=== PATIENT | male | born 1955 | race Caucasian/White ===

== ENCOUNTER 2017-05-14 09:50 | Day surgery (SDC) | payer OTHER ==
[~2017-05-14] VITALS: Ht 170.2 cm; Wt 68.0 kg
[~2017-05-14 09:50] MED LIST: ALBU90OI INH; ALLO100 PO; ASPI325EC; ATOR40TA PO; Aspir 8181 MG PO; BENADRYL25 MG PO; BENTYL20 MG PO; BUSP10; BUTASPCAFT PO; CARV6.25 PO; CEPH500 PO; CLOP75; CLOP75 PO; Cyclobenzaprine5 MG PO; Doxycycline Hy100 MG PO; Duoneb 2.5-0.5 M3 ML INH; HYDACE5; HYDACE5 PO; HYDACE5325; HYDACE7.5 PO; HYDR1TAB94 PO; IBUP800 PO; ISODIN10 PO; ISOMON30; LISHYD1012 PO; LISI20 PO; LISI5 PO; LOVA40 PO; MELO7.5 PO; METO25ER PO; METO50; METO50ER; METO50ER PO; NIAC500ER; NITR.4SL; NITR.4SL SL; NITR.4TPA; Nitrostat0.4 MG PO; Norco 5-325 Ta1 EACH PO; OMEP20ER; OMEP20ER PO; OXYACE5T PO; Omeprazole20 M1 PO; PRED1; PRED10 PO; PRED5; PROM25 PO; PSEU120ER PO; Percocet 5-3251 EACH PO; Prednisone20 MG PO; RANI150 PO; ROSU10TA; ROSU10TA PO; SCOPOLAMINE1 EACH TD; TIOT18 INH; TOPI50 PO; TRAM50 PO; Ultram50 MG PO; Vibramycin100 MG PO; ZESTORETIC 20-121 EA; Zofran Odt4 MG SL
--- NOTE | 2017-05-14 10:57 | NUR ---
Ambulatory in Day Surgery History, Chart, Medications and Allergies reviewed before start of procedure.Patient confirms NPO status and agrees with scheduled surgery. Lungs clear T/O to Auscultation.Patient states colon prep results clear.
--- NOTE | 2017-05-14 11:36 | NUR ---
05/14/17 1136 Linda Rodríguez History, Chart, Medications and Allergies reviewed before start of procedure.PATIENT DETERMINED TO BE ASA APPROPRIATE FOR PROPOFOL SEDATION PRIOR TO START OF PROCEDURE BY .MONITOR INTACT WITH CONTINUOUS PULSE OXIMETRY AND INTERMITTENT BP.3-LEAD EKG REVIEWED WITH PHYSICIAN PRIOR TO START OF PROCEDURE.O2 VIA N/C INTACT THROUGHOUT SEDATION/PROCEDURE.
--- NOTE | 2017-05-14 12:08 | NUR ---
ALERT. SITTING UP IN BED DRINKING COFFEE. BREATHING RA.
--- NOTE | 2017-05-14 12:37 | NUR ---
1220- VSS. UP TO DRESS. GAIT STEADY. TO DRIVE HOME. SPOKE TO DR STRICKLAND ON PHONE ABOUT RESUMING PLAVIX. DR. STRICKLAND INSTRUCTED PATIENT TO RESUME TODAY.
[2017-09-24] MEDS ORDERED: GABA600 PO (13:43)
[2017-09-24] MEDS ORDERED: Sudogest60 MG PO (13:43)
[2017-09-25] MEDS ORDERED: METO50ER PO (11:15)
[2017-09-25] MEDS ORDERED: Nicoderm Cq1 EAC1 TD (11:16)
[2017-09-25] MEDS ORDERED: XARELTO20 MG PO (11:16)
== END 2017-05-14 22:47 | disposition home or self-care (01) ==
LOC: ORSCMMR 09:50
PROVIDERS: Internal Medicine Gastroenterology
PROC: 0DBL8ZX Excision of Transverse Colon, Via Natural or Artificial Opening Endoscopic, Diagnostic (ICD-10-PCS; principal; 2017-05-14 11:30)
DX: K62.5 Hemorrhage of anus and rectum (principal); D12.3 Benign neoplasm of transverse colon; K64.8 Other hemorrhoids; K57.30 Diverticulosis of large intestine without perforation or abscess without bleeding; Z86.010 Personal history of colon polyps; I25.2 Old myocardial infarction; I10 Essential (primary) hypertension; J44.9 Chronic obstructive pulmonary disease, unspecified; Z79.01 Long term (current) use of anticoagulants; Z79.899 Other long term (current) drug therapy; F17.210 Nicotine dependence, cigarettes, uncomplicated
CPT/HCPCS: 88305; J7120

== ENCOUNTER 2017-08-02 19:34 | Observation (INO) | payer OTHER ==
[~2017-08-02] VITALS: Ht 170.2 cm; Wt 66.0 kg
[2017-08-02 19:53] LABS: BASOPHILS ABSOLUTE AUTO 0.07 K/mm3 (0.00-0.23); BASOPHILS PERCENT AUTO 1 % (0-2); EOSINOPHILS ABSOLUTE AUTO 0.19 K/mm3 (0.00-0.68); EOSINOPHILS PERCENT AUTO 2 % (0-6); Hematocrit 38.3 % (37.0-53.0); Hemoglobin 12.8 g/dL (13.5-17.5); IMMATURE GRAN ABSOLUTE AUTO 0.03 K/mm3 (0.00-0.10); IMMATURE GRAN PERCENT AUTO 0 % (0-1); LYMPHOCYTES ABSOLUTE AUTO 2.24 K/mm3 (0.84-5.20); LYMPHOCYTES PERCENT AUTO 24 % (21-46); MONOCYTES PERCENT AUTO 8 % (4-13); Mean Corpuscular HGB 30.2 pg (26.0-34.0); Mean Corpuscular HGB Conc 33.4 g/dL (31.5-36.5); Mean Corpuscular Volume 90 fL (80-100); Mean Platelet Volume 10.9 fL (9.1-12.4); NEUTROPHILS ABSOLUTE AUTO 6.11 K/mm3 (1.96-9.15); NEUTROPHILS PERCENT AUTO 66 % (41-73); Platelet Count 206 K/mm3 (150-400); RDW Coefficient Variation 13.8 % (11.7-14.2); RDW Standard Deviation 45.4 fL (35.1-46.3); Red Blood Cell Count 4.24 M/mm3 (4.30-5.90); White Blood Cell Count 9.34 K/mm3 (4.00-11.30)
[2017-08-02 20:05] LABS: International Normalized Ratio 0.98; Prothrombin Time Results 10.2 Sec (9.7-11.5)
[2017-08-02 20:11] LABS: Influenza A Negative (NEGATIVE); Influenza B Negative (NEGATIVE)
[2017-08-02 20:13] LABS: Alanine Aminotransfer (ALT/SGP 18 U/L (12-78); Albumin, Blood 3.1 g/dL (3.4-5.0); Albumin/Globulin Ratio 0.9 (0.8-1.8); Alk Phos 98 U/L (50-136); Anion Gap 11 mmol/L (6-16); Aspartate Aminotrans (AST/SGOT 14 U/L (12-37); Bilirubin, Total 0.3 mg/dL (0.1-1.0); Blood Urea Nitrogen 16 mg/dL (8-24); Bun/Creatinine Ratio 19.8 (12.0-20.0); CO2, Blood 17 mmol/L (21-32); Calcium, Blood 8.2 mg/dL (8.5-10.1); Chloride, Blood 111 mmol/L (98-108); Creatinine, Blood 0.81 mg/dL (0.60-1.20); Globulin, Blood 3.4 g/dL (2.2-4.0); Glomerular Filtration Rate >60 (60-); Glucose, Blood 106 mg/dL (70-99); Sodium, Blood 139 mmol/L (136-145); Total Protein, Blood 6.5 g/dL (6.4-8.2); Troponin I <0.015 ng/mL (0.000-0.040)
[2017-08-02] MEDS ORDERED: Sudogest60 MG PO (21:21)
[2017-08-02] MEDS ORDERED: ATOR40TA PO (21:24)
[2017-08-03 01:54] LABS: Influenza A Negative (NEGATIVE); Influenza B Negative (NEGATIVE)
[2017-08-03 04:19] LABS: BASOPHILS ABSOLUTE AUTO 0.04 K/mm3 (0.00-0.23); BASOPHILS PERCENT AUTO 1 % (0-2); EOSINOPHILS ABSOLUTE AUTO 0.19 K/mm3 (0.00-0.68); EOSINOPHILS PERCENT AUTO 3 % (0-6); Hematocrit 35.2 % (37.0-53.0); Hemoglobin 11.6 g/dL (13.5-17.5); IMMATURE GRAN ABSOLUTE AUTO 0.01 K/mm3 (0.00-0.10); IMMATURE GRAN PERCENT AUTO 0 % (0-1); LYMPHOCYTES ABSOLUTE AUTO 1.47 K/mm3 (0.84-5.20); LYMPHOCYTES PERCENT AUTO 26 % (21-46); MONOCYTES ABSOLUTE AUTO 0.47 K/mm3 (0.16-1.47); MONOCYTES PERCENT AUTO 8 % (4-13); Mean Corpuscular HGB 30.7 pg (26.0-34.0); Mean Platelet Volume 10.8 fL (9.1-12.4); NEUTROPHILS ABSOLUTE AUTO 3.57 K/mm3 (1.96-9.15); NEUTROPHILS PERCENT AUTO 62 % (41-73); Platelet Count 176 K/mm3 (150-400); RDW Coefficient Variation 13.9 % (11.7-14.2); RDW Standard Deviation 47.5 fL (35.1-46.3); Red Blood Cell Count 3.78 M/mm3 (4.30-5.90); White Blood Cell Count 5.75 K/mm3 (4.00-11.30)
[2017-08-03 04:21] LABS: Mean Corpuscular Volume 93 fL (80-100)
[2017-08-03 04:38] LABS: Alanine Aminotransfer (ALT/SGP 20 U/L (12-78); Albumin, Blood 2.7 g/dL (3.4-5.0); Albumin/Globulin Ratio 0.9 (0.8-1.8); Alk Phos 87 U/L (50-136); Anion Gap 9 mmol/L (6-16); Aspartate Aminotrans (AST/SGOT 12 U/L (12-37); Bilirubin, Total 0.2 mg/dL (0.1-1.0); Blood Urea Nitrogen 16 mg/dL (8-24); CO2, Blood 22 mmol/L (21-32); Calcium, Blood 8.1 mg/dL (8.5-10.1); Chloride, Blood 114 mmol/L (98-108); Creatinine, Blood 0.73 mg/dL (0.60-1.20); Globulin, Blood 3.1 g/dL (2.2-4.0); Glomerular Filtration Rate >60 (60-); Glucose, Blood 107 mg/dL (70-99); Sodium, Blood 145 mmol/L (136-145); Total Protein, Blood 5.8 g/dL (6.4-8.2)
[2017-08-03 04:41] LABS: CPK Creatine Kinase 104 U/L (39-308); Troponin I <0.015 ng/mL (0.000-0.040)
[2017-08-03] MEDS ORDERED: ZESTORETIC 20-121 EA PO (10:20)
[2017-08-03] MEDS ORDERED: GABA600 PO (10:21)
[2017-08-03] MEDS ORDERED: DOXY100 PO (11:05)
[2017-09-24] MEDS ORDERED: Sudogest60 MG PO (13:43)
[2017-09-24] MEDS ORDERED: GABA600 PO (13:43)
[2017-09-25] MEDS ORDERED: METO50ER PO (11:15)
[2017-09-25] MEDS ORDERED: Nicoderm Cq1 EAC1 TD (11:16)
[2017-09-25] MEDS ORDERED: XARELTO20 MG PO (11:16)
== END 2017-08-03 11:58 | disposition home or self-care (01) ==
LOC: ER 19:34 → MEDS 19:35 → ENPENDDIS 08-03 11:00 → MEDS 08-03 11:58
PROVIDERS: Emergency Medicine; Internal Medicine
DX: I48.0 Paroxysmal atrial fibrillation (principal); R07.89 Other chest pain; E78.00 Pure hypercholesterolemia, unspecified; G43.909 Migraine, unspecified, not intractable, without status migrainosus; F17.210 Nicotine dependence, cigarettes, uncomplicated; J40 Bronchitis, not specified as acute or chronic; E87.6 Hypokalemia; I10 Essential (primary) hypertension; K21.9 Gastro-esophageal reflux disease without esophagitis; Z79.02 Long term (current) use of antithrombotics/antiplatelets; Z79.899 Other long term (current) drug therapy; Z88.0 Allergy status to penicillin; Z88.8 Allergy status to other drugs, medicaments and biological substances; Z86.79 Personal history of other diseases of the circulatory system; Z86.73 Personal history of transient ischemic attack (TIA), and cerebral infarction without residual deficits; Z23 Encounter for immunization
CPT/HCPCS: 36415; 71046; 80053; 82550; 83735; 83880; 84484; 85025; 85610; 85730; 87804; 93005; 93010; 94640; 94760; 96361; 96365; 96366; 96375; 96376; 99285; G0008; G0378; J1956; J3010; J3480; J7030; Q2038

== ENCOUNTER 2018-06-21 14:44 | Emergency (ER) | payer OTHER ==
[~2018-06-21] VITALS: Ht 170.2 cm; Wt 65.8 kg
[~2018-06-21 14:44] MED LIST changes: +DOXY100 PO; +GABA600 PO; +Nicoderm Cq1 EAC1 TD; +Sudogest60 MG PO; +XARELTO20 MG PO; +ZESTORETIC 20-121 EA PO
[2018-06-21 15:29] LABS: BASOPHILS ABSOLUTE AUTO 0.08 K/mm3 (0.00-0.23); BASOPHILS PERCENT AUTO 1 % (0-2); EOSINOPHILS ABSOLUTE AUTO 0.27 K/mm3 (0.00-0.68); EOSINOPHILS PERCENT AUTO 4 % (0-6); Hematocrit 46.3 % (37.0-53.0); Hemoglobin 14.9 g/dL (13.5-17.5); IMMATURE GRAN ABSOLUTE AUTO 0.01 K/mm3 (0.00-0.10); IMMATURE GRAN PERCENT AUTO 0 % (0-1); LYMPHOCYTES ABSOLUTE AUTO 2.05 K/mm3 (0.84-5.20); LYMPHOCYTES PERCENT AUTO 28 % (21-46); MONOCYTES ABSOLUTE AUTO 0.47 K/mm3 (0.16-1.47); MONOCYTES PERCENT AUTO 6 % (4-13); Mean Corpuscular HGB 30.1 pg (26.0-34.0); Mean Corpuscular HGB Conc 32.2 g/dL (31.5-36.5); Mean Corpuscular Volume 94 fL (80-100); Mean Platelet Volume 11.4 fL (9.1-12.4); NEUTROPHILS ABSOLUTE AUTO 4.45 K/mm3 (1.96-9.15); NEUTROPHILS PERCENT AUTO 61 % (41-73); Platelet Count 211 K/mm3 (150-400); RDW Coefficient Variation 13.9 % (11.7-14.2); RDW Standard Deviation 47.4 fL (35.1-46.3); Red Blood Cell Count 4.95 M/mm3 (4.30-5.90); White Blood Cell Count 7.33 K/mm3 (4.00-11.30)
[2018-06-21 15:47] LABS: Alanine Aminotransfer (ALT/SGP 19 U/L (12-78); Albumin, Blood 3.8 g/dL (3.4-5.0); Albumin/Globulin Ratio 0.9 (0.8-1.8); Alk Phos 125 U/L (50-136); Anion Gap 9 mmol/L (6-16); Aspartate Aminotrans (AST/SGOT 9 U/L (12-37); Bilirubin, Total 0.4 mg/dL (0.1-1.0); Blood Urea Nitrogen 12 mg/dL (8-24); CO2, Blood 23 mmol/L (21-32); Chloride, Blood 106 mmol/L (98-108); Creatinine, Blood 0.92 mg/dL (0.60-1.20); Globulin, Blood 4.1 g/dL (2.2-4.0); Glomerular Filtration Rate >60 (60-); Glucose, Blood 84 mg/dL (70-99); Sodium, Blood 138 mmol/L (136-145); Total Protein, Blood 7.9 g/dL (6.4-8.2); Troponin I <0.015 ng/mL (0.000-0.040)
[2018-06-21 18:34] LABS: Influenza A Negative (NEGATIVE); Influenza B Negative (NEGATIVE)
== END 2018-06-21 19:25 | disposition home or self-care (01) ==
LOC: ER 14:44
PROVIDERS: Physician Assistant
DX: J20.9 Acute bronchitis, unspecified (principal); Z88.0 Allergy status to penicillin; Z88.8 Allergy status to other drugs, medicaments and biological substances; Z79.899 Other long term (current) drug therapy; J44.9 Chronic obstructive pulmonary disease, unspecified; Z86.73 Personal history of transient ischemic attack (TIA), and cerebral infarction without residual deficits; I10 Essential (primary) hypertension; F17.210 Nicotine dependence, cigarettes, uncomplicated
CPT/HCPCS: 36415; 71046; 80053; 84484; 85025; 87804; 93005; 93010; 99284-25

== ENCOUNTER 2018-06-28 10:24 | Emergency (ER) | payer OTHER ==
[~2018-06-28] VITALS: Ht 170.2 cm; Wt 65.8 kg
[2018-06-28 10:45] LABS: BASOPHILS ABSOLUTE AUTO 0.06 K/mm3 (0.00-0.23); BASOPHILS PERCENT AUTO 1 % (0-2); EOSINOPHILS ABSOLUTE AUTO 0.37 K/mm3 (0.00-0.68); EOSINOPHILS PERCENT AUTO 3 % (0-6); Hemoglobin 13.5 g/dL (13.5-17.5); IMMATURE GRAN ABSOLUTE AUTO 0.04 K/mm3 (0.00-0.10); IMMATURE GRAN PERCENT AUTO 0 % (0-1); LYMPHOCYTES ABSOLUTE AUTO 2.31 K/mm3 (0.84-5.20); LYMPHOCYTES PERCENT AUTO 21 % (21-46); MONOCYTES ABSOLUTE AUTO 0.86 K/mm3 (0.16-1.47); MONOCYTES PERCENT AUTO 8 % (4-13); Mean Corpuscular HGB 30.1 pg (26.0-34.0); Mean Corpuscular HGB Conc 32.1 g/dL (31.5-36.5); Mean Corpuscular Volume 94 fL (80-100); Mean Platelet Volume 11.6 fL (9.1-12.4); NEUTROPHILS ABSOLUTE AUTO 7.23 K/mm3 (1.96-9.15); NEUTROPHILS PERCENT AUTO 66 % (41-73); Platelet Count 190 K/mm3 (150-400); RDW Coefficient Variation 14.6 % (11.7-14.2); RDW Standard Deviation 49.2 fL (35.1-46.3); Red Blood Cell Count 4.48 M/mm3 (4.30-5.90); White Blood Cell Count 10.87 K/mm3 (4.00-11.30)
[2018-06-28 11:00] LABS: Alanine Aminotransfer (ALT/SGP 24 U/L (12-78); Alk Phos 108 U/L (50-136); Anion Gap 8 mmol/L (6-16); Aspartate Aminotrans (AST/SGOT 21 U/L (12-37); Bilirubin, Total 0.3 mg/dL (0.1-1.0); Blood Urea Nitrogen 15 mg/dL (8-24); Bun/Creatinine Ratio 17.3 (12.0-20.0); CO2, Blood 24 mmol/L (21-32); Calcium, Blood 7.9 mg/dL (8.5-10.1); Chloride, Blood 112 mmol/L (98-108); Creatinine, Blood 0.87 mg/dL (0.60-1.20); Globulin, Blood 2.9 g/dL (2.2-4.0); Glomerular Filtration Rate >60 (60-); Glucose, Blood 107 mg/dL (70-99); Potassium, Blood 4.5 mmol/L (3.5-5.5); Sodium, Blood 144 mmol/L (136-145); Total Protein, Blood 5.9 g/dL (6.4-8.2); Troponin I <0.015 ng/mL (0.000-0.040)
== END 2018-06-28 14:20 | disposition home or self-care (01) ==
LOC: ER 10:24
PROVIDERS: Emergency Medicine
DX: I48.0 Paroxysmal atrial fibrillation (principal); I48.92 Unspecified atrial flutter; J44.9 Chronic obstructive pulmonary disease, unspecified; I10 Essential (primary) hypertension; F17.210 Nicotine dependence, cigarettes, uncomplicated
CPT/HCPCS: 71045; 80053; 83690; 84484; 85025; 93005; 93010; 99285-25

== ENCOUNTER 2018-11-27 15:33 | Emergency (ER) | payer OTHER ==
[~2018-11-27] VITALS: Ht 170.2 cm; Wt 65.8 kg
[2018-11-27 16:12] LABS: Source, Urine Clean Catch
[2018-11-27 16:24] LABS: Bilirubin, Urine Neg (Neg); Blood, Urine 5+ (Neg); Glucose Qualitative, Urine Neg (Neg); Ketones, Urine Neg (Neg); Leukocyte Esterase, Urine Neg (Neg); Nitrite, Urine Neg (Neg); Protein, Urine Neg (Neg); Specific Gravity, Urine 1.015 (1.003-1.022); Urobilinogen, Urine NORM (Normal); pH, Urine 6.5 (5.0-8.0)
[2018-11-27 16:26] LABS: BASOPHILS ABSOLUTE AUTO 0.06 K/mm3 (0.00-0.23); BASOPHILS PERCENT AUTO 1 % (0-2); EOSINOPHILS PERCENT AUTO 3 % (0-6); Hematocrit 39.6 % (37.0-53.0); Hemoglobin 13.1 g/dL (13.5-17.5); IMMATURE GRAN ABSOLUTE AUTO 0.01 K/mm3 (0.00-0.10); IMMATURE GRAN PERCENT AUTO 0 % (0-1); LYMPHOCYTES ABSOLUTE AUTO 1.75 K/mm3 (0.84-5.20); LYMPHOCYTES PERCENT AUTO 26 % (21-46); MONOCYTES ABSOLUTE AUTO 0.44 K/mm3 (0.16-1.47); MONOCYTES PERCENT AUTO 7 % (4-13); Mean Corpuscular HGB 30.4 pg (26.0-34.0); Mean Corpuscular HGB Conc 33.1 g/dL (31.5-36.5); Mean Corpuscular Volume 92 fL (80-100); Mean Platelet Volume 11.7 fL (9.1-12.4); NEUTROPHILS ABSOLUTE AUTO 4.27 K/mm3 (1.96-9.15); NEUTROPHILS PERCENT AUTO 64 % (41-73); Platelet Count 168 K/mm3 (150-400); RDW Coefficient Variation 13.5 % (11.7-14.2); Red Blood Cell Count 4.31 M/mm3 (4.30-5.90); White Blood Cell Count 6.73 K/mm3 (4.00-11.30)
[2018-11-27 16:39] LABS: Color, Urine Yellow (P-Yellow)
[2018-11-27 16:40] LABS: Appearance, Urine Hazy (Clear); Red Blood Cells, Urine 50-100 /hpf (0-2); White Blood Cells, Urine 0-2 /hpf (0-5)
[2018-11-27 16:41] LABS: Bacteria Rare /hpf; Squamous Epithelial Cells Rare /hpf (Few)
[2018-11-27 16:48] LABS: Alanine Aminotransfer (ALT/SGP 16 U/L (12-78); Albumin, Blood 3.6 g/dL (3.4-5.0); Alk Phos 124 U/L (50-136); Anion Gap 6 mmol/L (6-16); Aspartate Aminotrans (AST/SGOT 8 U/L (12-37); Bilirubin, Total 0.2 mg/dL (0.1-1.0); Blood Urea Nitrogen 12 mg/dL (8-24); Bun/Creatinine Ratio 15.6 (12.0-20.0); CO2, Blood 22 mmol/L (21-32); Calcium, Blood 8.7 mg/dL (8.5-10.1); Chloride, Blood 112 mmol/L (98-108); Creatinine, Blood 0.77 mg/dL (0.60-1.20); Globulin, Blood 3.5 g/dL (2.2-4.0); Glomerular Filtration Rate >60 (60-); Glucose, Blood 105 mg/dL (70-99); Potassium, Blood 3.7 mmol/L (3.5-5.5); Sodium, Blood 140 mmol/L (136-145); Total Protein, Blood 7.1 g/dL (6.4-8.2)
[2018-11-27] MEDS ORDERED: ONDA4ODT MM (18:38)
== END 2018-11-27 18:50 | disposition home or self-care (01) ==
LOC: ER 15:33
PROVIDERS: Emergency Medicine; Physician Assistant
DX: N20.0 Calculus of kidney (principal); R11.0 Nausea; Z86.73 Personal history of transient ischemic attack (TIA), and cerebral infarction without residual deficits; I10 Essential (primary) hypertension; G43.909 Migraine, unspecified, not intractable, without status migrainosus; I48.91 Unspecified atrial fibrillation; J44.9 Chronic obstructive pulmonary disease, unspecified; F17.210 Nicotine dependence, cigarettes, uncomplicated; Z79.899 Other long term (current) drug therapy
CPT/HCPCS: 36415; 74177; 80053; 81001; 85025; 96374-59; 99284-25; J1885; Q9967

== ENCOUNTER 2018-12-16 15:29 | Emergency (ER) | payer OTHER ==
[~2018-12-16] VITALS: Ht 167.6 cm; Wt 49.9 kg
[~2018-12-16 15:29] MED LIST changes: +ONDA4ODT MM
[2018-12-16 16:15] LABS: BASOPHILS ABSOLUTE AUTO 0.06 K/mm3 (0.00-0.23); BASOPHILS PERCENT AUTO 1 % (0-2); EOSINOPHILS ABSOLUTE AUTO 0.15 K/mm3 (0.00-0.68); EOSINOPHILS PERCENT AUTO 3 % (0-6); Hematocrit 40.5 % (37.0-53.0); Hemoglobin 13.5 g/dL (13.5-17.5); IMMATURE GRAN ABSOLUTE AUTO 0.03 K/mm3 (0.00-0.10); IMMATURE GRAN PERCENT AUTO 1 % (0-1); LYMPHOCYTES ABSOLUTE AUTO 1.67 K/mm3 (0.84-5.20); LYMPHOCYTES PERCENT AUTO 28 % (21-46); MONOCYTES ABSOLUTE AUTO 0.49 K/mm3 (0.16-1.47); MONOCYTES PERCENT AUTO 8 % (4-13); Mean Corpuscular HGB 30.4 pg (26.0-34.0); Mean Corpuscular HGB Conc 33.3 g/dL (31.5-36.5); Mean Corpuscular Volume 91 fL (80-100); Mean Platelet Volume 11.3 fL (9.1-12.4); NEUTROPHILS ABSOLUTE AUTO 3.48 K/mm3 (1.96-9.15); NEUTROPHILS PERCENT AUTO 59 % (41-73); Platelet Count 207 K/mm3 (150-400); RDW Coefficient Variation 13.7 % (11.7-14.2); Red Blood Cell Count 4.44 M/mm3 (4.30-5.90); White Blood Cell Count 5.88 K/mm3 (4.00-11.30)
[2018-12-16 16:23] LABS: Alanine Aminotransfer (ALT/SGP 19 U/L (12-78); Albumin, Blood 3.7 g/dL (3.4-5.0); Alk Phos 133 U/L (50-136); Anion Gap 5 mmol/L (6-16); Aspartate Aminotrans (AST/SGOT 12 U/L (12-37); Bilirubin, Total 0.3 mg/dL (0.1-1.0); Blood Urea Nitrogen 11 mg/dL (8-24); Bun/Creatinine Ratio 13.1 (12.0-20.0); CO2, Blood 23 mmol/L (21-32); Calcium, Blood 8.9 mg/dL (8.5-10.1); Chloride, Blood 114 mmol/L (98-108); Creatinine, Blood 0.84 mg/dL (0.60-1.20); Globulin, Blood 3.7 g/dL (2.2-4.0); Glomerular Filtration Rate >60 (60-); Glucose, Blood 105 mg/dL (70-99); Potassium, Blood 3.6 mmol/L (3.5-5.5); Sodium, Blood 142 mmol/L (136-145); Total Protein, Blood 7.4 g/dL (6.4-8.2); Troponin I <0.015 ng/mL (0.000-0.040)
[2018-12-16] MEDS ORDERED: TAMS.4ER PO (17:00)
[2018-12-16 17:48] LABS: Source, Urine Clean Catch
[2018-12-16 17:57] LABS: Bilirubin, Urine Neg (Neg); Blood, Urine 3+ (Neg); Glucose Qualitative, Urine Neg (Neg); Ketones, Urine Neg (Neg); Leukocyte Esterase, Urine 1+ (Neg); Nitrite, Urine Neg (Neg); Protein, Urine Neg (Neg); Urobilinogen, Urine NORM (Normal)
[2018-12-16 18:15] LABS: Appearance, Urine Clear (Clear); Color, Urine Yellow (P-Yellow)
[2018-12-16 18:16] LABS: White Blood Cells, Urine 0-2 /hpf (0-5)
[2018-12-16 18:18] LABS: Squamous Epithelial Cells Not Seen /hpf (Few)
[2018-12-16 18:19] LABS: Bacteria Few /hpf
== END 2018-12-16 18:34 | disposition home or self-care (01) ==
LOC: ER 15:29
PROVIDERS: Emergency Medicine; Student in an Organized Health Care Education/Training Program
DX: I48.0 Paroxysmal atrial fibrillation (principal); Z88.0 Allergy status to penicillin; Z88.8 Allergy status to other drugs, medicaments and biological substances; Z79.899 Other long term (current) drug therapy; J44.9 Chronic obstructive pulmonary disease, unspecified; Z86.73 Personal history of transient ischemic attack (TIA), and cerebral infarction without residual deficits; I10 Essential (primary) hypertension; F17.210 Nicotine dependence, cigarettes, uncomplicated
CPT/HCPCS: 36415; 71046; 80053; 81001; 84484; 85025; 87086; 93005; 93010; 96374; 99285-25

== ENCOUNTER 2019-09-03 17:15 | Emergency (ER) | payer OTHER ==
[~2019-09-03] VITALS: Ht 170.2 cm; Wt 54.4 kg
[~2019-09-03 17:15] MED LIST changes: +LEVO750 PO; +TAMS.4ER PO; +Zantac150 MG PO
[2019-09-03 17:35] LABS: Source, Urine Clean Catch
[2019-09-03 17:43] LABS: Bilirubin, Urine Neg (Neg); Blood, Urine 5+ (Neg); Glucose Qualitative, Urine Neg (Neg); Ketones, Urine Neg (Neg); Leukocyte Esterase, Urine 1+ (Neg); Nitrite, Urine Neg (Neg); Protein, Urine 1+ (Neg); Urobilinogen, Urine NORM (Normal)
[2019-09-03 17:54] LABS: BASOPHILS ABSOLUTE AUTO 0.05 K/mm3 (0.00-0.23); BASOPHILS PERCENT AUTO 1 % (0-2); EOSINOPHILS PERCENT AUTO 2 % (0-6); Hematocrit 39.2 % (37.0-53.0); IMMATURE GRAN ABSOLUTE AUTO 0.02 K/mm3 (0.00-0.10); IMMATURE GRAN PERCENT AUTO 0 % (0-1); LYMPHOCYTES ABSOLUTE AUTO 1.75 K/mm3 (0.84-5.20); LYMPHOCYTES PERCENT AUTO 19 % (21-46); MONOCYTES ABSOLUTE AUTO 0.62 K/mm3 (0.16-1.47); MONOCYTES PERCENT AUTO 7 % (4-13); Mean Corpuscular HGB 30.4 pg (26.0-34.0); Mean Corpuscular HGB Conc 33.2 g/dL (31.5-36.5); Mean Corpuscular Volume 92 fL (80-100); Mean Platelet Volume 11.4 fL (9.1-12.4); NEUTROPHILS ABSOLUTE AUTO 6.64 K/mm3 (1.96-9.15); NEUTROPHILS PERCENT AUTO 72 % (41-73); Platelet Count 193 K/mm3 (150-400); RDW Coefficient Variation 13.9 % (11.7-14.2); RDW Standard Deviation 46.6 fL (35.1-46.3); Red Blood Cell Count 4.28 M/mm3 (4.30-5.90); White Blood Cell Count 9.28 K/mm3 (4.00-11.30)
[2019-09-03 17:59] LABS: Appearance, Urine Hazy (Clear); Color, Urine Yellow (P-Yellow); Red Blood Cells, Urine TNTC /hpf (0-2)
[2019-09-03 18:00] LABS: Bacteria Few /hpf; Calcium Oxalate Crystals Rare /hpf; Squamous Epithelial Cells Rare /hpf (Few)
[2019-09-03 18:07] LABS: Alanine Aminotransfer (ALT/SGP 23 U/L (12-78); Albumin, Blood 3.5 g/dL (3.4-5.0); Albumin/Globulin Ratio 0.9 (0.8-1.8); Alk Phos 139 U/L (50-136); Anion Gap 8 mmol/L (6-16); Aspartate Aminotrans (AST/SGOT 20 U/L (12-37); Bilirubin, Total 0.3 mg/dL (0.1-1.0); Blood Urea Nitrogen 20 mg/dL (8-24); Bun/Creatinine Ratio 16.5 (12.0-20.0); CO2, Blood 21 mmol/L (21-32); Calcium, Blood 9.2 mg/dL (8.5-10.1); Chloride, Blood 107 mmol/L (98-108); Creatinine, Blood 1.21 mg/dL (0.60-1.20); Globulin, Blood 3.7 g/dL (2.2-4.0); Glomerular Filtration Rate >60 (60-); Glucose, Blood 141 mg/dL (70-99); Potassium, Blood 3.5 mmol/L (3.5-5.5); Sodium, Blood 136 mmol/L (136-145); Total Protein, Blood 7.2 g/dL (6.4-8.2)
[2019-09-03] MEDS ORDERED: NITR.4SL SL (18:24)
[2019-09-03] MEDS ORDERED: ALBU90OI INH (18:24)
[2019-09-03] MEDS ORDERED: Percocet 7.5-31 EACH PO (18:24)
[2019-09-03] MEDS ORDERED: Flomax0.4 MG PO (19:56)
== END 2019-09-03 20:25 | disposition home or self-care (01) ==
LOC: ER 17:15
PROVIDERS: Physician Assistant
DX: N13.2 Hydronephrosis with renal and ureteral calculous obstruction (principal); J44.9 Chronic obstructive pulmonary disease, unspecified; I10 Essential (primary) hypertension; F17.210 Nicotine dependence, cigarettes, uncomplicated; Z79.899 Other long term (current) drug therapy; Z88.0 Allergy status to penicillin
CPT/HCPCS: 36415; 74176; 80053; 81001; 83690; 85025; 87086; 96374; 96375; 99284-25; J1170; J1885

== ENCOUNTER 2020-06-27 11:13 | Emergency (ER) | payer OTHER ==
[~2020-06-27] VITALS: Ht 170.2 cm; Wt 54.4 kg
[~2020-06-27 11:13] MED LIST changes: +ALLO300 PO; +Flomax0.4 MG PO; +METTREX2.5 PO; +Percocet 7.5-31 EACH PO
[2020-06-27] MEDS ORDERED: Percocet 10-321 EACH PO (11:33)
[2020-06-27 12:08] LABS: BASOPHILS ABSOLUTE AUTO 0.07 K/mm3 (0.00-0.23); BASOPHILS PERCENT AUTO 1 % (0-2); EOSINOPHILS ABSOLUTE AUTO 0.16 K/mm3 (0.00-0.68); EOSINOPHILS PERCENT AUTO 3 % (0-6); Hematocrit 37.9 % (37.0-53.0); Hemoglobin 12.4 g/dL (13.5-17.5); IMMATURE GRAN ABSOLUTE AUTO 0.02 K/mm3 (0.00-0.10); IMMATURE GRAN PERCENT AUTO 0 % (0-1); LYMPHOCYTES ABSOLUTE AUTO 1.39 K/mm3 (0.84-5.20); LYMPHOCYTES PERCENT AUTO 21 % (21-46); MONOCYTES ABSOLUTE AUTO 0.36 K/mm3 (0.16-1.47); MONOCYTES PERCENT AUTO 6 % (4-13); Mean Corpuscular HGB 32.2 pg (26.0-34.0); Mean Corpuscular HGB Conc 32.7 g/dL (31.5-36.5); Mean Corpuscular Volume 98 fL (80-100); Mean Platelet Volume 10.9 fL (9.1-12.4); NEUTROPHILS PERCENT AUTO 69 % (41-73); Platelet Count 145 K/mm3 (150-400); RDW Coefficient Variation 14.6 % (11.7-14.2); RDW Standard Deviation 52.1 fL (35.1-46.3); Red Blood Cell Count 3.85 M/mm3 (4.30-5.90)
[2020-06-27 12:22] LABS: Alanine Aminotransfer (ALT/SGP 26 U/L (12-78); Albumin, Blood 3.6 g/dL (3.4-5.0); Albumin/Globulin Ratio 1.1 (0.8-1.8); Alk Phos 109 U/L (50-136); Anion Gap 9 mmol/L (6-16); Aspartate Aminotrans (AST/SGOT 16 U/L (12-37); Bilirubin, Total 0.3 mg/dL (0.1-1.0); Blood Urea Nitrogen 22 mg/dL (8-24); Bun/Creatinine Ratio 27.8 (12.0-20.0); CO2, Blood 21 mmol/L (21-32); Calcium, Blood 8.7 mg/dL (8.5-10.1); Chloride, Blood 111 mmol/L (98-108); Creatinine, Blood 0.79 mg/dL (0.60-1.20); Globulin, Blood 3.3 g/dL (2.2-4.0); Glomerular Filtration Rate >60 (60-); Glucose, Blood 112 mg/dL (70-99); Potassium, Blood 3.8 mmol/L (3.5-5.5); Sodium, Blood 141 mmol/L (136-145); Total Protein, Blood 6.9 g/dL (6.4-8.2); Troponin I <0.015 ng/mL (0.000-0.040)
== END 2020-06-27 13:25 | disposition home or self-care (01) ==
LOC: ER 11:13
PROVIDERS: Emergency Medicine
DX: R07.9 Chest pain, unspecified (principal); J44.9 Chronic obstructive pulmonary disease, unspecified; I10 Essential (primary) hypertension; F17.210 Nicotine dependence, cigarettes, uncomplicated; Z95.5 Presence of coronary angioplasty implant and graft; Z86.73 Personal history of transient ischemic attack (TIA), and cerebral infarction without residual deficits; Z86.718 Personal history of other venous thrombosis and embolism; Z79.899 Other long term (current) drug therapy
CPT/HCPCS: 71045; 80053; 83690; 84484; 85025; 93005; 93010; 99285-25; A9270

== ENCOUNTER 2021-10-21 14:28 | Inpatient (IN) | payer OTHER ==
[~2021-10-21] VITALS: Ht 170.2 cm; Wt 47.5 kg
[~2021-10-21 14:28] MED LIST changes: +Percocet 10-321 EACH PO
[2021-10-21 15:18] LABS: BASOPHILS ABSOLUTE AUTO 0.04 K/mm3 (0.00-0.23); BASOPHILS PERCENT AUTO 0 % (0-2); EOSINOPHILS ABSOLUTE AUTO 0.15 K/mm3 (0.00-0.68); EOSINOPHILS PERCENT AUTO 2 % (0-6); Hematocrit 36.6 % (37.0-53.0); Hemoglobin 12.1 g/dL (13.5-17.5); IMMATURE GRAN ABSOLUTE AUTO 0.03 K/mm3 (0.00-0.10); IMMATURE GRAN PERCENT AUTO 0 % (0-1); LYMPHOCYTES ABSOLUTE AUTO 1.21 K/mm3 (0.84-5.20); LYMPHOCYTES PERCENT AUTO 14 % (21-46); MONOCYTES ABSOLUTE AUTO 0.42 K/mm3 (0.16-1.47); MONOCYTES PERCENT AUTO 5 % (4-13); Mean Corpuscular HGB 28.8 pg (26.0-34.0); Mean Corpuscular HGB Conc 33.1 g/dL (31.5-36.5); Mean Corpuscular Volume 87 fL (80-100); NEUTROPHILS ABSOLUTE AUTO 7.07 K/mm3 (1.96-9.15); NEUTROPHILS PERCENT AUTO 79 % (41-73); Platelet Count 293 K/mm3 (150-400); RDW Coefficient Variation 16.6 % (11.7-14.2); RDW Standard Deviation 53.1 fL (35.1-46.3); White Blood Cell Count 8.92 K/mm3 (4.00-11.30)
[2021-10-21 15:36] LABS: Albumin, Blood 2.8 g/dL (3.4-5.0); Albumin/Globulin Ratio 0.7 (0.8-1.8); Bilirubin, Total 0.4 mg/dL (0.1-1.0); Bun/Creatinine Ratio 25.4 (12.0-20.0); Calcium, Blood 9.3 mg/dL (8.5-10.1); Creatinine, Blood 0.67 mg/dL (0.60-1.20); Globulin, Blood 4.3 g/dL (2.2-4.0); Potassium, Blood 3.1 mmol/L (3.5-5.5); Total Protein, Blood 7.1 g/dL (6.4-8.2)
[2021-10-21 16:37] LABS: Influenza A, PCR NEGATIVE (NEGATIVE); Influenza B, PCR NEGATIVE (NEGATIVE); Resp Syncytial Virus, PCR NEGATIVE (NEGATIVE); SARS-Cov-2 (COVID-19) PCR, MMC NEGATIVE (NEGATIVE)
[2021-10-21] MEDS ORDERED: MIRT15ST PO (18:31)
[2021-10-21] MEDS ORDERED: SERT100 PO (18:33)
[2021-10-21] MEDS ORDERED: FOLI1 PO (18:33)
[2021-10-21] MEDS ORDERED: TOPI100 PO (18:34)
[2021-10-21] MEDS ORDERED: FAMO20 PO (18:34)
[2021-10-21] MEDS ORDERED: FINA5 PO (18:34)
[2021-10-21] MEDS ORDERED: ALLO100 PO (18:35)
[2021-10-21] MEDS ORDERED: CLOP75 PO (18:36)
[2021-10-21] MEDS ORDERED: TAMS.4ER PO (18:36)
[2021-10-21] MEDS ORDERED: LORA10ER PO (18:36)
[2021-10-21] MEDS ORDERED: B COMPLEX FORM0.4 MG (18:37)
[2021-10-21] MEDS ORDERED: IRON18 MG (18:37)
[2021-10-21] MEDS ORDERED: OXYC10TA19 PO (18:38)
[2021-10-21 20:14] LABS: International Normalized Ratio 1.09; Prothrombin Time Results 11.4 Sec (9.7-11.5)
[2021-10-22 04:55] LABS: Albumin, Blood 2.7 g/dL (3.4-5.0); Albumin/Globulin Ratio 0.7 (0.8-1.8); Bilirubin, Total 0.4 mg/dL (0.1-1.0); Bun/Creatinine Ratio 21.6 (12.0-20.0); Calcium, Blood 8.5 mg/dL (8.5-10.1); Creatinine, Blood 0.65 mg/dL (0.60-1.20); Globulin, Blood 4.1 g/dL (2.2-4.0); Total Protein, Blood 6.8 g/dL (6.4-8.2)
[2021-10-23 08:38] LABS: Magnesium, Blood 1.8 mg/dL (1.6-2.4); Potassium, Blood 3.4 mmol/L (3.5-5.5)
[2021-10-24 06:10] LABS: Bun/Creatinine Ratio 17.3 (12.0-20.0); Calcium, Blood 8.9 mg/dL (8.5-10.1); Creatinine, Blood 1.33 mg/dL (0.60-1.20)
[2021-10-24] MEDS ORDERED: METO50ER PO (09:51)
[2021-10-24] MEDS ORDERED: LISI20 PO (09:54)
[2021-10-24] MEDS ORDERED: XARELTO20 MG PO (09:55)
== END 2021-10-24 10:25 | disposition home or self-care (01) | DRG 308 ==
LOC: ER 14:28 → PCU 18:53 → ER 19:56 → PCU 19:56
PROVIDERS: Emergency Medicine; Internal Medicine; ADMIT Internal Medicine
DX: I48.92 Unspecified atrial flutter (principal); I26.93 Single subsegmental thrombotic pulmonary embolism without acute cor pulmonale; I50.42 Chronic combined systolic (congestive) and diastolic (congestive) heart failure; I48.91 Unspecified atrial fibrillation; Z20.822 Contact with and (suspected) exposure to COVID-19; G89.29 Other chronic pain; I11.0 Hypertensive heart disease with heart failure; J44.9 Chronic obstructive pulmonary disease, unspecified; R04.0 Epistaxis; K21.9 Gastro-esophageal reflux disease without esophagitis; F17.210 Nicotine dependence, cigarettes, uncomplicated; I25.10 Atherosclerotic heart disease of native coronary artery without angina pectoris; E87.6 Hypokalemia; E78.5 Hyperlipidemia, unspecified; T45.515A Adverse effect of anticoagulants, initial encounter; Z96.643 Presence of artificial hip joint, bilateral; Z95.5 Presence of coronary angioplasty implant and graft; Z86.718 Personal history of other venous thrombosis and embolism; Z86.73 Personal history of transient ischemic attack (TIA), and cerebral infarction without residual deficits; Z98.890 Other specified postprocedural states; Z88.0 Allergy status to penicillin; Z88.8 Allergy status to other drugs, medicaments and biological substances; Z79.02 Long term (current) use of antithrombotics/antiplatelets; Z79.899 Other long term (current) drug therapy
CPT/HCPCS: 0241U; 36415; 71045; 71260; 80048; 80053; 83735; 83880; 84132; 84484; 85025; 85379; 85610; 85730; 93005; 93010; 94640; 94664; 94760; 96365-59; 96366-59; 96375-59; 99285-25; A9270; J1650; J1940; J2405; Q9967

== ENCOUNTER 2021-10-30 08:02 | Emergency (ER) | payer OTHER ==
[~2021-10-30] VITALS: Ht 170.2 cm; Wt 54.4 kg
[~2021-10-30 08:02] MED LIST changes: +B COMPLEX FORM0.4 MG; +FAMO20 PO; +FINA5 PO; +FOLI1 PO; +IRON18 MG; +LORA10ER PO; +MIRT15ST PO; +OXYC10TA19 PO; +SERT100 PO; +TOPI100 PO
[2021-10-30 08:35] LABS: Calcium, Ionized (POC) 1.22 mmol/L (1.10-1.46); Chloride (POC) 113 mmol/L (98-108); Glucose (ISTAT POC) 142 mg/dL (70-99); Hemoglobin (POC) 9.2 g/dL (13.5-17.5); Potassium (POC) 3.8 mmol/L (3.5-5.5); Sodium (POC) 142 mmol/L (135-148); Total CO2 (POC) 18 mmol/L (21-32)
[2021-10-30] MEDS ORDERED: ONDA4ODT MM (10:30)
== END 2021-10-30 11:13 | disposition home or self-care (01) ==
LOC: ER 08:02
PROVIDERS: Physician Assistant
DX: R04.0 Epistaxis (principal); J44.9 Chronic obstructive pulmonary disease, unspecified; I10 Essential (primary) hypertension; F17.200 Nicotine dependence, unspecified, uncomplicated; Z96.643 Presence of artificial hip joint, bilateral; Z88.0 Allergy status to penicillin; Z88.8 Allergy status to other drugs, medicaments and biological substances; Z79.899 Other long term (current) drug therapy; Z86.73 Personal history of transient ischemic attack (TIA), and cerebral infarction without residual deficits
CPT/HCPCS: 80047; 85014; A9270; J2405

== ENCOUNTER 2022-01-06 16:09 | Inpatient (IN) | payer OTHER ==
[~2022-01-06] VITALS: Ht 154.9 cm; Wt 44.5 kg
[~2022-01-06 16:09] MED LIST changes: +ATOR80 PO; +FURO40 PO; +PANT40 PO
[2022-01-06] MEDS ORDERED: OXYC10TA19 PO (16:50)
[2022-01-06 16:55] LABS: Hemoglobin 11.5 g/dL (13.5-17.5); Mean Corpuscular HGB 29.9 pg (26.0-34.0); Mean Corpuscular HGB Conc 31.9 g/dL (31.5-36.5); Mean Corpuscular Volume 94 fL (80-100); Mean Platelet Volume 12.3 fL (9.1-12.4); Platelet Count 169 K/mm3 (150-400); RDW Coefficient Variation 19.8 % (11.7-14.2); RDW Standard Deviation 67.3 fL (35.1-46.3); Red Blood Cell Count 3.85 M/mm3 (4.30-5.90); White Blood Cell Count 2.36 K/mm3 (4.00-11.30)
[2022-01-06 17:04] LABS: Albumin, Blood 2.4 g/dL (3.4-5.0); Albumin/Globulin Ratio 0.6 (0.8-1.8); Bilirubin, Total 0.6 mg/dL (0.1-1.0); Calcium, Blood 9.5 mg/dL (8.5-10.1); Creatinine, Blood 0.88 mg/dL (0.60-1.20); Globulin, Blood 4.3 g/dL (2.2-4.0); Potassium, Blood 3.8 mmol/L (3.5-5.5); Total Protein, Blood 6.7 g/dL (6.4-8.2)
[2022-01-06 17:20] LABS: BAND PERCENT MAN 1 % (0-8); BASOPHILS PERCENT MAN 0 % (0-2); EOSINOPHILS PERCENT MAN 0 % (0-6); LYMPHOCYTES ABSOLUTE MAN 0.47 K/mm3 (0.84-5.20); LYMPHOCYTES PERCENT MAN 20 % (21-46); MONOCYTES ABSOLUTE MAN 0.04 K/mm3 (0.16-1.47); MONOCYTES PERCENT MAN 2 % (4-13); NEUTROPHILS ABSOLUTE MAN 1.84 K/mm3 (1.96-9.15); SEG NEUTROPHILS PERCENT MAN 77 % (41-73); TOTAL CELLS COUNTED 100
[2022-01-06 18:54] LABS: International Normalized Ratio 1.01; Prothrombin Time Results 10.6 Sec (9.7-11.5)
[2022-01-06 19:20] LABS: Influenza A, PCR NEGATIVE (NEGATIVE); Influenza B, PCR NEGATIVE (NEGATIVE); Resp Syncytial Virus, PCR NEGATIVE (NEGATIVE); SARS-Cov-2 (COVID-19) PCR, MMC NEGATIVE (NEGATIVE)
[2022-01-06] MEDS ORDERED: FAMO20 PO (21:31)
[2022-01-06] MEDS ORDERED: LISI5 PO (21:33)
[2022-01-06] MEDS ORDERED: METO50ER PO (21:34)
[2022-01-06] MEDS ORDERED: SERT100 PO (21:35)
[2022-01-07 02:50] LABS: Hematocrit 30.1 % (37.0-53.0); Hemoglobin 9.9 g/dL (13.5-17.5); Mean Corpuscular HGB 29.8 pg (26.0-34.0); Mean Corpuscular HGB Conc 32.9 g/dL (31.5-36.5); Mean Corpuscular Volume 91 fL (80-100); Platelet Count 135 K/mm3 (150-400); RDW Coefficient Variation 19.6 % (11.7-14.2); RDW Standard Deviation 64.6 fL (35.1-46.3); Red Blood Cell Count 3.32 M/mm3 (4.30-5.90); White Blood Cell Count 1.03 K/mm3 (4.00-11.30)
[2022-01-07] MEDS ORDERED: REMERON15 M9 PO (02:54)
[2022-01-07] MEDS ORDERED: ALLO300 PO (02:56)
[2022-01-07] MEDS ORDERED: DEXA6 PO (02:59)
[2022-01-07] MEDS ORDERED: SENNA LAXATIVE8.6 MG PO (03:01)
[2022-01-07] MEDS ORDERED: Ativan1 MG PO (03:02)
[2022-01-07 03:13] LABS: Albumin, Blood 2.1 g/dL (3.4-5.0); Albumin/Globulin Ratio 0.6 (0.8-1.8); Bilirubin, Total 0.4 mg/dL (0.1-1.0); Bun/Creatinine Ratio 50.7 (12.0-20.0); Calcium, Blood 8.7 mg/dL (8.5-10.1); Creatinine, Blood 0.71 mg/dL (0.60-1.20); Globulin, Blood 3.7 g/dL (2.2-4.0); Potassium, Blood 3.3 mmol/L (3.5-5.5); Total Protein, Blood 5.8 g/dL (6.4-8.2)
[2022-01-07 03:23] LABS: BAND PERCENT MAN 16 % (0-8); BASOPHILS PERCENT MAN 0 % (0-2); EOSINOPHILS PERCENT MAN 0 % (0-6); LYMPHOCYTES PERCENT MAN 20 % (21-46); MONOCYTES ABSOLUTE MAN 0.04 K/mm3 (0.16-1.47); MONOCYTES PERCENT MAN 4 % (4-13); NEUTROPHILS ABSOLUTE MAN 0.78 K/mm3 (1.96-9.15); SEG NEUTROPHILS PERCENT MAN 60 % (41-73); TOTAL CELLS COUNTED 50
--- NOTE | 2022-01-07 05:28 | NUR ---
SHIFT SUMMARY PATIENT TO PCU FROM ED AT 2252 01/06, SLID TO BED. PATIENT IS ALERT AND ORIENTED X4. PATIENT COUGHING AND COMPLAINING OF SOME CHEST PAIN, TELE APPEARED TO SHOW ST CHANGES, EKG DONE, NO CHANGES FROM PREVIOUS EKG NOTICED. ONCE COUGHING STOPPPED PATIENT DENIED ANY CP/PRESSURE. HR SR 80s-90s. BP STABLE. 02 SATS >93% ON 2L VIA NC. PATIENT USES OXYGEN PRN AT HOME. COUGHING UP SMALL AMOUNT OF THICK LANDERS SPUTUM. TROPONIN INCREASING, CALLED TO HOSPITALIST, NO NEW ORDERS, PATIENT ON HEPARN DRIP. POTASSIUM REPLACED. PATIENT ABLE TO REPOSITION SELF IN BED, IN ROOM ASSISTING PATIENT. PATIENT NPO AT MIDNIGHT, OTHER THAN MEDICATIONS AND ICE CHIPS. PATIENT AND ASKED TO CALL THIS RN BEFORE GETTING PATIENT UP. CALL LIGHT IN REACH. SEE ADMIT ASSESSMENT FOR MORE INFORMATION.
--- NOTE | 2022-01-07 06:58 | NUR ---
[facility]ESS[facility] [id number] - [id number] 01/06/22
--- NOTE | 2022-01-07 07:35 | NUR ---
AM ASSESSMENT: Pt resting in bed, Cachectic in appearance. Heprin gtt running, verified with night rn. LS coarse and diminished, coughing up large amounts of yellow sputum. HR reg. BT positive and pulses palp. No edema noted. at bedside. Pt up to BSC with one person mod assist. During transfer Pt flipped to Afib with RVR. Asymptomatic. Will notify physician and obtain EKG to verify. Spoke with and patient about plan of care. Pt was previously on home hospice but is currently a Full Code. verified that is correct. Explained the process of Full code if Pt were to go into cardiac arrest. and Pt thinking about this and will talk with palliative care and physician. No other changes at this time. Call light in reach.
[2022-01-07 08:54] LABS: Hematocrit 31.4 % (37.0-53.0); Hemoglobin 10.3 g/dL (13.5-17.5)
[2022-01-07 09:04] LABS: Albumin, Blood 2.1 g/dL (3.4-5.0); Albumin/Globulin Ratio 0.5 (0.8-1.8); Bilirubin, Direct 0.2 mg/dL (0.0-0.3); Bilirubin, Indirect 0.4 mg/dL (0.1-0.7); Bilirubin, Total 0.6 mg/dL (0.1-1.0); Globulin, Blood 4.1 g/dL (2.2-4.0); Total Protein, Blood 6.2 g/dL (6.4-8.2)
[2022-01-07 11:24] LABS: Anti-Xa UFH, PHA Monitoring 0.1 IU/mL
--- NOTE | 2022-01-07 15:25 | NUR ---
Case conferenced with pt's , RN and [facility] welfare aide prior to my visit to pt's room. Pt has been on [facility] hospice services for approx 6 weeks for CHF, pulmonary HTN, multiple comorbidities. He and presented to ER due to increased weakness, sob, decreased LOC, overall decline. They did not contact hospice prior to ER visit. When I attempted visit with pt, I could not wake him with voice or gentle touch/nudging. t/c to who seems to have a very poor understanding of pt's illness and anticipated progression/decline with ES disease. Pt is severely cachectic and appears nearing EOL. states she is getting mixed messages from physicians regarding prognosis and tx available. Planned to visit with her when she comes in to review pt's advanced directive and POLST with her. She states pt wants CPR but does not want to be intubated. Will f/u with physician after my visit.
--- NOTE | 2022-01-07 16:24 | NUR ---
Second visit with present to review AD/POLST. states she left them at home and another relative will bring them in later. Regardless of previous wishes, after conversation and some vacilation, pt/ request that pt remains a full code. Pt wants us to "keep him alive just long enough for his children to visit". I strongly encouraged pt's family members to visit pt while he is alert, oriented and able to interact with him. He stated at one point that he did not want ventilation and wanted to decide about CPR. Dr Lucas arrived & also confirmed Full code desired. [facility] dietetic intern has visited and disenrolled pt from Hospice at this time.
--- NOTE | 2022-01-07 17:51 | NUR ---
Shift Summary: Pt resting in bed with sig other at bedside. Pt has been painful on and off throughout the shift with chest pain and back pain. Chest pain increases with anxiety and with cough. Pt has been coughing up large amounts of thick, yellow sputum throughout the shift. Sample sent. HR flipped to A-fib RVR around 0730 and has remained in afib since then. Cardezem gtt was started and is currently running at 15mg/hr. HR starting to improve with rate 100-150's. BP maintaining. BIox has remained >92% on 2L per NC. Pt and his sig other have had conversations with hospitalist physician, residents, homeland security program specialist and palliative care. Currently Pt and sig other would like to remain full code. No other changes this shift. Will report to night RN.
[2022-01-08 02:11] LABS: Hematocrit 30.2 % (37.0-53.0); Hemoglobin 9.8 g/dL (13.5-17.5); Mean Corpuscular HGB 30.2 pg (26.0-34.0); Mean Corpuscular HGB Conc 32.5 g/dL (31.5-36.5); Mean Corpuscular Volume 93 fL (80-100); Mean Platelet Volume 11.8 fL (9.1-12.4); Platelet Count 133 K/mm3 (150-400); RDW Coefficient Variation 19.8 % (11.7-14.2); RDW Standard Deviation 67.3 fL (35.1-46.3); Red Blood Cell Count 3.25 M/mm3 (4.30-5.90)
[2022-01-08 02:16] LABS: White Blood Cell Count 0.45 K/mm3 (4.00-11.30)
[2022-01-08 02:26] LABS: Albumin/Globulin Ratio 0.5 (0.8-1.8); Bilirubin, Total 0.5 mg/dL (0.1-1.0); Bun/Creatinine Ratio 39.2 (12.0-20.0); Calcium, Blood 9.1 mg/dL (8.5-10.1); Creatinine, Blood 0.79 mg/dL (0.60-1.20); Potassium, Blood 4.2 mmol/L (3.5-5.5)
[2022-01-08 02:35] LABS: BAND PERCENT MAN 6 % (0-8); BASOPHILS PERCENT MAN 0 % (0-2); EOSINOPHILS PERCENT MAN 2 % (0-6); LYMPHOCYTES ABSOLUTE MAN 0.16 K/mm3 (0.84-5.20); LYMPHOCYTES PERCENT MAN 36 % (21-46); MONOCYTES PERCENT MAN 2 % (4-13); NEUTROPHILS ABSOLUTE MAN 0.27 K/mm3 (1.96-9.15); SEG NEUTROPHILS PERCENT MAN 54 % (41-73); TOTAL CELLS COUNTED 50
--- NOTE | 2022-01-08 05:39 | NUR ---
SHIFT SUMMARY PT AXO. AT BEDSIDE T/O SHIFT. PT ON SHIFT START WAS ON CARDIZEM GTT @ 15, PT CONVERTED TO SR, GTT SLOWLY TITRATED OFF. PT THEN CONVERTED TO AFIB RVR AGAIN UPON GETTING UP TO BSC. GTT RESTARTED AT 5, HAS REMAINED THERE, BP STABLE. HR 100'S. PT REMAINS ON 2LNC, LUNG SOUNDS UNCHANGED. VOIDING WELL. NO BM THIS SHIFT. AND OTHERWISE, PT HAS SLEPT T/O NIGHT.
[2022-01-08 08:09] LABS: HIV AB/P24 AG SCREEN Non Reactive (Non Reactive)
[2022-01-08 14:09] LABS: % CD 4 POS. LYMPH. 44.4 % (30.8-58.5); ABSOLUTE CD 4 HELPER 133 /uL (359-1519); BASOS 0 % (Not Estab.); EOS 0 % (Not Estab.); HEMATOCRIT 32.2 % (37.5-51.0); HEMATOLOGY COMMENTS: Note: (.); LYMPHS 41 % (Not Estab.); LYMPHS (ABSOLUTE) 0.3 x10E3/uL (0.7-3.1); MCH 29.2 pg (26.6-33.0); MCHC 31.1 g/dL (31.5-35.7); MCV 94 fL (79-97); MONOCYTES 6 % (Not Estab.); NEUTROPHILS 53 % (Not Estab.); PLATELETS 140 x10E3/uL (150-450); RBC 3.42 x10E6/uL (4.14-5.80)
--- NOTE | 2022-01-08 18:34 | NUR ---
SHIFT SUMMARY: PT A&Ox4 T/OUT SHIFT, KLUTI KAAH, COOPERATIVE W/CARE, SPOUSE AT BEDSIDE. DILTIAZEM GTT TURNED OFF APPROX 1014, PT HAS MAINTAINED SR 80s SINCE THEN, TROP CONTINUES TO TREND DOWN. PT MAINTAINING O2 SATS >92% ON RA, DENIES SOB, OCCASIONAL COUGH PRODUCTIVE OF THICK WHITE SPUTUM CONTINUES. SBA, RECEIVED BEDBATH TODAY. WILL CONTINUE TO MONITOR AND TREAT ACCORDINGLY UNTIL CHANGE OF SHIFT.
--- NOTE | 2022-01-09 04:59 | NUR ---
SHIFT SUMMARY PT ALERT AND ORIENTED X 4. HR STABLE. REMAINED IN NSR T/O SHIFT. BP STABLE. MAP ABOVE 65. NO CP OR PRESSURE. HEPARIN GTT, SEE EMAR. AT BEDSIDE, HELPFUL WITH PT CARE. OXYGEN SATURATION MAINTAINED ABOVE 95% ON RA-2L VIA NC. PT ABLE TO TURN SELF IN BED. NO ACUTE CHANGES T/O SHIFT. CALL LIGHT WITHIN REACH. WILL CONT TO MONITOR UNTIL REPORT GIVEN TO DAYSHIFT RN.
[2022-01-09 06:01] LABS: Hematocrit 25.4 % (37.0-53.0); Hemoglobin 8.3 g/dL (13.5-17.5); Mean Corpuscular HGB 29.9 pg (26.0-34.0); Mean Corpuscular HGB Conc 32.7 g/dL (31.5-36.5); Mean Corpuscular Volume 91 fL (80-100); Mean Platelet Volume 12.2 fL (9.1-12.4); Platelet Count 136 K/mm3 (150-400); RDW Coefficient Variation 19.2 % (11.7-14.2); RETICULOCYTE COUNT PERCENT 0.62 % (0.50-2.50); Red Blood Cell Count 2.78 M/mm3 (4.30-5.90)
[2022-01-09 06:06] LABS: BASOPHILS PERCENT AUTO 0 % (0-2); EOSINOPHILS PERCENT AUTO 0 % (0-6); IMMATURE GRAN ABSOLUTE AUTO 0.01 K/mm3 (0.00-0.10); IMMATURE GRAN PERCENT AUTO 2 % (0-1); LYMPHOCYTES ABSOLUTE AUTO 0.23 K/mm3 (0.84-5.20); LYMPHOCYTES PERCENT AUTO 43 % (21-46); MONOCYTES PERCENT AUTO 0 % (4-13); NEUTROPHILS ABSOLUTE AUTO 0.29 K/mm3 (1.96-9.15); NEUTROPHILS PERCENT AUTO 55 % (41-73)
[2022-01-09 06:07] LABS: White Blood Cell Count 0.53 K/mm3 (4.00-11.30)
[2022-01-09 06:29] LABS: Albumin, Blood 1.8 g/dL (3.4-5.0); Albumin/Globulin Ratio 0.5 (0.8-1.8); Bilirubin, Total 0.6 mg/dL (0.1-1.0); Bun/Creatinine Ratio 48.5 (12.0-20.0); Calcium, Blood 8.5 mg/dL (8.5-10.1); Creatinine, Blood 0.72 mg/dL (0.60-1.20); Globulin, Blood 3.4 g/dL (2.2-4.0); Potassium, Blood 3.8 mmol/L (3.5-5.5); Total Protein, Blood 5.2 g/dL (6.4-8.2)
--- NOTE | 2022-01-09 06:43 | NUR ---
UPDATE PT REPORTS CP D/T COUGHING. REQUESTING PAIN MEDICATIONS. MEDICATED PER EMAR. HR INCREASED UP TO 150S TO 160. CARDIZEM GTT RESTARTED AT 5MG/HR. BP STABLE.
--- NOTE | 2022-01-09 06:52 | NUR ---
UPDATE PHYSICIAN NOTIFIED OF PT'S HR MAINTAINED 150'S WHILE ON CARDIZEM GTT AT 10MG/HR. INCREASING CARDIZEM GTT AT THIS TIME TO 15 MG/HR.
--- NOTE | 2022-01-09 08:20 | NUR ---
AM ASSESSMENT: Pt sleeping in bed. Wakes to loud verbal stimulus. Pt is A/O x4. Pt seems withdrawn, wants to go home. IV cardizem running at 20mg/hr, heprin gtt running per orders. HR still shows a-fib or sinus tach at 150-160's. Physicians in to see patient and order for IV metoprolol. Will d/c cardizem when metoprolol given. LS clear in upper lobes, coarse in bases. BT positive. Pulses palp. Denies pain at this time. Pt does have a productive cough with white, thick sputum. Sig other at bedside. Call light in reach. Will continue to monitor.
[2022-01-09 09:23] LABS: WBC 0.8 x10E3/uL (3.4-10.8)
[2022-01-09 09:24] LABS: NEUTROPHILS (ABSOLUTE) 0.4 x10E3/uL (1.4-7.0)
--- NOTE | 2022-01-09 13:31 | NUR ---
Spiritual care visit conducted. Patient is lying in bed and has his S.O., Maribel bedside. Maribel tells me about pt's medical conditions and about the questions that are still attempted to be answered. They talk about their baptism beliefs (she leans towards the Jehovah Witness beliefs and the pt toward the Chrisitan beliefs). Pt admits to be having a challenging time emotioanlly and Maribel explains her experience in more detail. They talk about their strong desire to get pt home and to keep moving in an aggressive path medically to assist pt to recover from the PNA. I normalize their experience, establish rapport and provide therapeutic listening, gentle summer camp counselor and prayer. Pt and Maribel respond well and shows signs of increased peace.
--- NOTE | 2022-01-09 16:54 | NUR ---
Shift Summary: Pt resting in bed. He became tearful this shift, stating he wants to go home. Talked to patient about need for continued antibiotics, heart rate issues and underlying health issues. Pt states he will stay a few more days but still tearful. Pt's rate and rhythm have been veriable this shift. Rhythm has varried from NSR, Junctional, A-fib, A-flutter, Sinus tach. Cardizem gtt was turned off and Pt was given IV metoprolol this am, digoxin and oral medications. Rate has improved. No other changes this shift. Will continue to monitor and treat.
[2022-01-09 21:25] LABS: Digoxin (Lanoxin) 1.59 ug/mL (0.80-2.00)
[2022-01-10 09:06] LABS: Hematocrit 30.1 % (37.0-53.0); Hemoglobin 9.8 g/dL (13.5-17.5); Mean Corpuscular HGB Conc 32.6 g/dL (31.5-36.5); Mean Corpuscular Volume 92 fL (80-100); Mean Platelet Volume 11.5 fL (9.1-12.4); Platelet Count 126 K/mm3 (150-400); RDW Coefficient Variation 18.8 % (11.7-14.2); RDW Standard Deviation 63.7 fL (35.1-46.3); Red Blood Cell Count 3.27 M/mm3 (4.30-5.90)
[2022-01-10 09:09] LABS: White Blood Cell Count 0.96 K/mm3 (4.00-11.30)
[2022-01-10 09:30] LABS: BASOPHILS PERCENT MAN 0 % (0-2); EOSINOPHILS PERCENT MAN 0 % (0-6); LYMPHOCYTES ABSOLUTE MAN 0.19 K/mm3 (0.84-5.20); LYMPHOCYTES PERCENT MAN 20 % (21-46); MONOCYTES ABSOLUTE MAN 0.11 K/mm3 (0.16-1.47); MONOCYTES PERCENT MAN 12 % (4-13); NEUTROPHILS ABSOLUTE MAN 0.65 K/mm3 (1.96-9.15); SEG NEUTROPHILS PERCENT MAN 68 % (41-73); TOTAL CELLS COUNTED 25
[2022-01-10 09:42] LABS: Alanine Aminotransfer (ALT/SGP 43 U/L (12-78); Albumin, Blood 2.2 g/dL (3.4-5.0); Albumin/Globulin Ratio 0.6 (0.8-1.8); Alk Phos 91 U/L (50-136); Anion Gap 6 mmol/L (6-16); Aspartate Aminotrans (AST/SGOT 22 U/L (12-37); Bilirubin, Total 0.3 mg/dL (0.1-1.0); Blood Urea Nitrogen 38 mg/dL (8-24); Bun/Creatinine Ratio 49.7 (12.0-20.0); CO2, Blood 23 mmol/L (21-32); Calcium, Blood 9.1 mg/dL (8.5-10.1); Chloride, Blood 111 mmol/L (98-108); Creatinine, Blood 0.76 mg/dL (0.60-1.20); Digoxin (Lanoxin) 1.16 ug/mL (0.80-2.00); Globulin, Blood 3.7 g/dL (2.2-4.0); Glomerular Filtration Rate 99 (60-); Glucose, Blood 176 mg/dL (70-99); Potassium, Blood 4.1 mmol/L (3.5-5.5); Sodium, Blood 140 mmol/L (136-145); Total Protein, Blood 5.9 g/dL (6.4-8.2)
[2022-01-10] MEDS ORDERED: ASPI81CH PO (12:28)
--- NOTE | 2022-01-10 13:04 | NUR ---
DISCHARGE: NO ACUTE CHANGES. PATIENT DISCHARGE HOME WITH HOSPICE. AT BEDSIDE AND EDUCATED ON DISCHARGE EDUCATION. DISCHARGE MEDICATIONS AND FOLLOW UP REVIEWED WITH PATIENT AND . IV TAKEN OUT PER PROCTOCOL. VITAL SIGNS REMAINS STABLE. PATIENT LEFT UNIT VIA WHEELCHAIR WITH ALL PERSONAL BELONGINGS.
== END 2022-01-10 13:08 | disposition hospice, home (50) | DRG 871 ==
LOC: ER 16:09 → PCU 20:40
PROVIDERS: Family Medicine; Internal Medicine; Internal Medicine Cardiovascular Disease; Student in an Organized Health Care Education/Training Program; ADMIT Family Medicine
DX: A41.51 Sepsis due to Escherichia coli [E. coli] (principal); E43 Unspecified severe protein-calorie malnutrition; I21.4 Non-ST elevation (NSTEMI) myocardial infarction; I50.43 Acute on chronic combined systolic (congestive) and diastolic (congestive) heart failure; J15.5 Pneumonia due to Escherichia coli; I47.1 Supraventricular tachycardia; Z68.1 Body mass index [BMI] 19.9 or less, adult; Z51.5 Encounter for palliative care; I48.19 Other persistent atrial fibrillation; Z20.822 Contact with and (suspected) exposure to COVID-19; R64 Cachexia; D61.818 Other pancytopenia; J44.0 Chronic obstructive pulmonary disease with (acute) lower respiratory infection; B37.0 Candidal stomatitis; I11.0 Hypertensive heart disease with heart failure; I25.10 Atherosclerotic heart disease of native coronary artery without angina pectoris; G89.29 Other chronic pain; H91.90 Unspecified hearing loss, unspecified ear; M06.9 Rheumatoid arthritis, unspecified; Z96.643 Presence of artificial hip joint, bilateral; F17.210 Nicotine dependence, cigarettes, uncomplicated; E78.00 Pure hypercholesterolemia, unspecified; K21.9 Gastro-esophageal reflux disease without esophagitis; Z86.718 Personal history of other venous thrombosis and embolism; Z98.890 Other specified postprocedural states; I25.2 Old myocardial infarction; Z95.5 Presence of coronary angioplasty implant and graft; Z88.0 Allergy status to penicillin; Z88.8 Allergy status to other drugs, medicaments and biological substances; Z79.891 Long term (current) use of opiate analgesic; Z79.51 Long term (current) use of inhaled steroids; Z79.899 Other long term (current) drug therapy; Z79.811 Long term (current) use of aromatase inhibitors; Z79.01 Long term (current) use of anticoagulants; Z79.02 Long term (current) use of antithrombotics/antiplatelets; Z86.73 Personal history of transient ischemic attack (TIA), and cerebral infarction without residual deficits; Z99.81 Dependence on supplemental oxygen; Z86.711 Personal history of pulmonary embolism
CPT/HCPCS: 0241U; 36415; 71046; 80053; 80076; 80162; 82175; 82300; 82607; 82728; 82746; 83540; 83550; 83605; 83655; 83735; 83825; 83880; 84145; 84443; 84484; 85014; 85018; 85025; 85045; 85520; 85610; 85730; 86361; 86850; 86900; 86901; 87040; 87070; 87077; 87081; 87186; 87205; 87389; 92526; 92610; 93005; 93010; 93308; 93321; 94640; 94664; 94760; 94762; 96365; 96366; 96368; 96375; 99285-25; A9270; C9113; J0456; J0696; J1160; J1644; J1650; J2405; J3010; J7050; J7120